=== PATIENT | female | born 1965 | race Caucasian/White ===

== ENCOUNTER 2016-11-13 22:45 | Emergency (ER) | payer SELFPAY ==
[2016-11-13 23:17] LABS: BASOPHILS % 0.8 (0.0-1.5); EOSINOPHILS % 1.4 % (0.0-6.8); MEAN CORPUSCULAR HEMOGLOBIN 30.4 pg (28.0-34.0); MEAN CORPUSCULAR VOLUME 89.9 fl (80.0-100.0); MONOCYTES % 6.9 % (0.0-11.0); NEUTROPHILS # 7.6 # k/uL (1.4-7.7)
--- NOTE | 2016-11-13 23:25 | ED Physician Documentation ---
General Adult - HISTORIAN Historian: patient, other (chepe lirianoutavani) - HPI Stated Complaint: shaking, anxiety, generalized cramps Chief Complaint: General Adult Additional Information: Can't talk right and is shaking. She says it started 2 hours ago. Says nothing hurts. [place] says she was noted to be lying on floor yesterday but says this is not unusual. Denies ever having panic attack. Had the same feelings yesterday. At nursing home since 11/01/16. - ROS CONST: no problems - PAST HX Past History: other (Bipolar, anxiety, PTSD) Surgeries/Procedures: other (lung resection. LNMP 3 years ago.) Allergies/Adverse Reactions: Allergies Allergy/AdvReac Type Severity Reaction Status Date / Time prochlorperazine Allergy Severe Anaphylaxis Verified 11/13/16 23:15 [From Compazine] prochlorperazine edisylate Allergy Severe Anaphylaxis Verified 11/13/16 23:15 [From Compazine] prochlorperazine maleate Allergy Severe Anaphylaxis Verified 11/13/16 23:15 [From Compazine] risperidone [From Risperdal] Allergy Severe Anaphylaxis Verified 11/13/16 23:15 Home Medications: Ambulatory Orders Medication Instructions Recorded Buspirone HCl [Buspar] 10 mg PO BID 11/13/16 Citalopram Hydrobromide 40 mg PO D 11/13/16 [Citalopram HBr] Cyproheptadine HCl [Cyproheptadine 4 mg PO HS 11/13/16 HCl] Gabapentin [Gabapentin] 300 mg PO TID 11/13/16 Lurasidone HCl [Latuda] 60 mg PO D 11/13/16 Melatonin [Melatin] 3 mg PO HS 11/13/16 Omeprazole [Prilosec] 40 mg PO D 11/13/16 - SOCIAL HX Smoking History: non-smoker - FAMILY HX Family History: No - VITAL SIGNS Vital Signs: Vital Signs Temp Pulse Resp BP Pulse Ox 98 F 92 H 20 167/92 98 11/13/16 22:46 11/13/16 22:46 11/13/16 22:46 11/13/16 22:46 11/13/16 22:46 - REVIEWED ASSESSMENTS Nursing Assessment Reviewed: Yes Vitals Reviewed: Yes Progress - Progress Progress: Chest, AP portable History: Weakness Findings: No infiltrate, effusion or pneumothorax is present. Heart size, mediastinum and pulmonary vascularity are normal. Impression: No active pulmonary disease. Electronically signed on Nov 13, 2016 11:52:10 PM CDT by: David Gonzales CT head without contrast History: Weakness, mental status change Technique: Images through the brain were obtained without contrast. Findings: No mass, midline shift, obstructive hydrocephalus or acute intracranial hemorrhage is present. The ventricles are normal. No extraaxial fluid collection is identified. Impression: Normal. Electronically signed on Nov 13, 2016 11:51:34 PM CDT by: David Gonzales all labs good. urine clean. UDS non negative for marijuana. 0016, better after Ativan. Now says she refused buspirone earlier today because she thinks shaking episodes are because of the buspirone. Just started it a week ago. ED Results Lab/Radiology - Lab Results Lab Results: Lab Results 11/13/16 23:08 WBC 10.60 K/ul K/ul (4.00-12.00) RBC 5.18 M/ul M/ul (3.90-5.20) Hgb 15.7 g/dL g/dL (12.0-16.0) Hct 46.5 % % (34.5-46.5) MCV 89.9 fl fl (80.0-100.0) MCH 30.4 pg pg (28.0-34.0) MCHC 33.8 g/dL g/dL (30.0-36.0) RDW 12.5 % % (11.3-14.3) Plt Count 334 K/mm3 K/mm3 (130-400) Neut % (Auto) 71.8 % % (39.0-79.0) Lymph % (Auto) 17.1 % % (16.0-50.0) Sampson % (Auto) 6.9 % % (0.0-11.0) Eos % (Auto) 1.4 % % (0.0-6.8) Baso % (Auto) 0.8 (0.0-1.5) Neut # (Auto) 7.6 # k/uL # k/uL (1.4-7.7) Lymph # (Auto) 1.8 # k/uL # k/uL (0.6-4.0) Sampson # (Auto) 0.7 # k/uL # k/uL (0.0-0.9) Eos # (Auto) 0.1 # k/uL # k/uL (0.0-0.6) Baso # (Auto) 0.1 # k/uL # k/uL (0.0-0.5) Reactive Lymphs % 2.1 % % (0.0-5.0) Reactive Lymphs # 0.2 # k/uL # k/uL (0.0-0.8) - Orders Orders: ED Orders Category Date Time Status Place IV Lock 1T Care 11/13/16 22:57 Ordered CHEST 1 VIEW [RAD] Stat Exams 11/13/[address] BRAIN W/O CONTRAST Stat Exams 11/13/16 Ordered CBC/PLATELET/DIFF Routine Lab 11/13/16 Ordered CMP Routine Lab 11/13/16 Ordered DRUG SCREEN URINE MEDICAL ONLY Routine Lab 11/13/16 Ordered ETHANOL MEDICAL USE ONLY Stat Lab 11/13/16 Ordered UA W/MICRO IF INDICATED Routine Lab 11/13/16 22:57 Ordered Buspirone HCl [Buspar] Med 11/13/16 23:12 Once 10 mg PO BID ONE EKG WITH COMPARISON Stat Ther 11/13/16 Ordered General Adult Physical Exam - PHYSICAL EXAM GENERAL APPEARANCE: stares ahead. tremors of extremities EENT: eye inspection normal, ENT inspection normal, pharynx normal (poor mouth opening effort. unable to visualize), LUKAS, TM's nml NECK: normal inspection, supple RESPIRATORY: no resp distress, chest non-tender, breath sounds normal, other ( left thoracotomy scar) CVS: reg rate & rhythm, heart sounds normal, no murmur ABDOMEN: soft, normal bowel sounds, non-tender RECTAL: deferred BACK: normal inspection SKIN: normal color, diaphoresis EXTREMITIES: non-tender, no evidence of injury, no edema NEURO: CN's nml as tested, motor nml, sensation nml, cognition normal Discharge Clincal Impression: Anxiety Referrals: Primary Doctor,No [Primary Care Provider] - 2 Days Home Medications: Ambulatory Orders Buspirone HCl [Buspar] 10 mg PO BID 11/13/16 Citalopram Hydrobromide [Citalopram HBr] 40 mg PO D 11/13/16 Cyproheptadine HCl [Cyproheptadine HCl] 4 mg PO HS 11/13/16 Gabapentin [Gabapentin] 300 mg PO TID 11/13/16 Lurasidone HCl [Latuda] 60 mg PO D 11/13/16 Melatonin [Melatin] 3 mg PO HS 11/13/16 Omeprazole [Prilosec] 40 mg PO D 11/13/16 Condition: Good Disposition: 01 HOME, SELF-CARE Decision to Admit: NO Decision Time: 00:16
[2016-11-13] MEDS: BUSPIRONE HCL 5 MG TABLET PO ONE (23:30)
[2016-11-13 23:31] LABS: eGFR (African) > 60; eGFR (Non-African) > 60
[2016-11-13] MEDS ORDERED: LORazepam 2 MG/ML VIAL ONE (23:56)
[2016-11-13] MEDS: LORazepam 2 MG/ML VIAL IVP ONE (23:58)
[2016-11-14 01:30] VITALS: BP 121/81
--- NOTE | 2016-11-14 03:57 | Diagnostic Imaging Report ---
VINCE GENAO~ [facility] [address] [facility] [address] [place] [phone] ~ ~ ~ ~ Report Submission Date: Nov 13, 2016 11:51:34 PM CDT Patient ~ Study Name: DEVON GARCIA ~ Date: Nov 13, 2016 11:32:00 PM CDT ~ Modality Type: CT\SR Gender: O ~ Description: CT BRAIN W/O CONTRAST : 67 ~ Institution: [facility] Physician: VINCE GEANO ~ ~ ~ ~ CT head without contrast History: Weakness, mental status change Technique: Images through the brain were obtained without contrast. Findings: No mass, midline shift, obstructive hydrocephalus or acute intracranial hemorrhage is present. The ventricles are normal. No extraaxial fluid collection is identified. Impression: Normal. ~ Electronically signed on Nov 13, 2016 11:51:34 PM CDT by: David LOPEZ
--- NOTE | 2016-11-14 03:59 | Diagnostic Imaging Report ---
VINCE GENAO~ [facility] [address] [facility] [address] [place], [place]. [address] ~ ~ ~ ~ Report Submission Date: Nov 13, 2016 11:52:10 PM CDT Patient ~ Study Name: DEVON GARCIA ~ Date: Nov 13, 2016 11:37:55 PM CDT ~ Modality Type: CR Gender: O ~ Description: CHEST : 67 ~ Institution: [facility] Physician: VINCE GENAO ~ ~ ~ ~ Chest, AP portable History: Weakness Findings: No infiltrate, effusion or pneumothorax is present. Heart size, mediastinum and pulmonary vascularity are normal. Impression: No active pulmonary disease. ~ Electronically signed on Nov 13, 2016 11:52:10 PM CDT by: David LOPEZ
[2016-11-14 05:36] LABS: APPEARANCE,URINE CLEAR (CLEAR); COLOR,URINE YELLOW (YELLOW); OCCULT BLOOD,URINE TRACE-INTACT (NEGATIVE)
[2016-11-14 05:37] LABS: UROBILINOGEN URINE 0.2 Eu (0.2-1.0)
[2016-11-14 06:30] LABS: AMPHETAMINE NEGATIVE ng/mL (<1000); BARBITURATES NEGATIVE ng/mL (<300); CANNABINOIDS NON NEGATIVE ng/mL (< 50); COCAINE NEGATIVE ng/mL (<150); METHAMPHETAMINE NEGATIVE ng/mL (<1000); METHYLENEDIOXYMETHAMPHETAMINE NEGATIVE ng/mL (<500); MORPHINE NEGATIVE ng/mL (<300)
== END 2016-11-14 00:25 | disposition home or self-care (01) ==
LOC: ED 22:45
DX: F41.9 Anxiety disorder, unspecified (principal)
CPT/HCPCS: 51701; 70450; 71010; 80053; 80320; 80377; 81002; 85025; 93005; J2060; 96372; 99283; G0480; G0481; S1016